=== PATIENT | male | born 2000 | race Caucasian/White ===

== ENCOUNTER 2020-01-10 07:10 | Emergency (ER) | payer BC, OTHER ==
[~2020-01-10] VITALS: Ht 167.6 cm; Wt 81.7 kg
[2020-01-10] MEDS ORDERED: VIIBRYD40 MG PO (07:22)
[2020-01-10] MEDS ORDERED: BUPROPION XL300 MG PO (07:22)
[2020-01-10] MEDS ORDERED: DEPLIN-ALGAL O1 EAC1 PO (07:22)
[2020-01-10] MEDS ORDERED: VITAMIN D3125 MC1 PO (07:23)
[2020-01-10 08:12] LABS: HEMATOCRIT 47.9 % (42.0-52.0); HEMOGLOBIN 16.4 gm/dL (14.0-18.0); MCH 30.2 pg (26.0-34.0); MCHC 34.2 g/dL (28.0-37.0); MCV 88.4 fL (80.0-100.0); RBC 5.42 mil/uL (4.50-6.00); RDW 13.2 % (10.5-14.5); WBC 7.6 thou/uL (4.0-11.0)
[2020-01-10 08:18] LABS: CALCIUM 9.9 mg/dL (8.5-10.1)
[2020-01-10 08:24] LABS: ALBUMIN 4.4 g/dL (3.4-5.0); TOTAL BILIRUBIN 0.3 mg/dL (<0.1-1.0)
[2020-01-10 08:56] LABS: URINE BILIRUBIN NEGATIVE (Negative); URINE BLOOD NEGATIVE (Negative); URINE CLARITY CLEAR; URINE COLOR YELLOW; URINE GLUCOSE-RANDOM* NEGATIVE (Negative); URINE KETONES NEGATIVE (Negative); URINE LEUKOCYTES-REFLEX NEGATIVE (Negative); URINE NITRITE-REFLEX NEGATIVE (Negative); URINE PROTEIN (DIPSTICK) NEGATIVE (Negative); URINE SPECIFIC GRAVITY >= 1.030 (1.005-1.035); URINE UROBILINOGEN 0.2 E.U./dl (0.2-1.0)
[2020-01-10 09:57] VITALS: BP 136/90
== END 2020-01-10 10:15 | disposition home or self-care (01) ==
LOC: ER 07:10
PROVIDERS: Emergency Medicine
DX: K59.00 Constipation, unspecified (principal); R11.10 Vomiting, unspecified; R10.9 Unspecified abdominal pain; Z88.8 Allergy status to other drugs, medicaments and biological substances